=== PATIENT | female | born 1965 | race Hispanic/Latino ===

== ENCOUNTER 2020-01-23 20:33 | Emergency (ER) | payer BC ==
[~2020-01-23] VITALS: Ht 160 cm; Wt 68.0 kg
--- OUTSIDE RECORDS SUMMARY | 2020-01-23 20:37 | XMS REPORT | Encounter Summary ---
Author Organization Unknown Address [address] [place] [address] Phone [phone] Care Team Providers Care Carpenter Assistant Installer Name Role Phone Dr. Albania Bobo 3 [phone] Precious Oneal 119 [phone] Reason for Visit dizziness; nausea; tingling/numbness; headaches; cough / congestion; diarrhea; vomiting Instructions 1. Acute sinusitis Xyzal 5 mg tablet Nasonex 50 mcg/actuation [place] benzonatate 200 mg capsule 2. Nausea, vomiting and diarrhea ondansetron 4 mg disintegrating tablet 3. Immunization Shingrix Adjuvant Component (PF) intramuscular suspension 4. Body mass index 25-29 - overweight learning about healthy weight 5. Screening for malignant neoplasm of breast MAMMO, screening, digital, bilateral - Please contact patient to schedule. Thank you! 6. Screening for malignant neoplasm of colon colonoscopy referral - Please contact patient to schedule. Thank you! 7. Screening for disorder 8. Screening for osteoporosis DEXA - Please contact patient to schedule. Thank you! Discussion Note: None recorded. Plan of Care Reminders Provider Appointments Est Patient 12/17/2019 4:00PM Maddie Ferguson NP Lab None recorded. Referral Colonoscopy Referral 12/07/2019 Gokul Samuels Procedures None recorded. Surgeries None recorded. Imaging MAMMO, Screening, Digital, Bilateral 12/07/2019 [facility] Dexa 12/07/2019 [facility] Medications Name Start Date benzonatate 200 mg capsule Take 1 capsule 3 times a day by oral route as needed. Humalog [place] KwikPen U-100 15 units three times a day Jardiance 10 mg tablet Take 1 tablet every day by oral route for 90 days. Nasonex 50 mcg/actuation [place] 1 spray twice a day by intranasal route for 7 days. ondansetron 4 mg disintegrating tablet Take 1 tablet 3 times a day by oral route as needed. rosuvastatin 40 mg tablet Take 1 tablet every day by oral route for 90 days. Xultophy 100/3.6 100 unit-3.6 mg/mL (3 mL) subcutaneous insulin pen Inject 50 units every day by sub-q route for 30 days. Xyzal 5 mg tablet Take 1 tablet every day by oral route at bedtime for 7 days. Medications Administered None recorded. Vitals Height Weight BMI Blood Pressure 5 ft 2.3 in 156 lbs 28.3 kg/m2 110/76 mm[Hg] Results Lab Results None recorded. Allergies Code Code System Name Reaction Severity Status Onset NKDA Problems Name Status Onset Date Source Type 2 Diabetes Mellitus Active 12/07/2019 Dyslipidemia Active 12/07/2019 Procedures Date Name Performed by 11/10/2014 Hysterectomy (Total) Information not available 12/07/2019 MAMMO, Screening, Digital, Bilateral [address] [address] (Work Place) 12/07/[address] [address] (Work Place) Vaccine List Vaccine Type influenza, injectable, quadrivalent 09/25/2019 pneumococcal polysaccharide PPV23 05/10/2019 Tdap 09/25/2019 Social History Tobacco Smoking Status Never Smoker Past Encounters 12/07/2019 Acute Sinusitis; Nausea, Vomiting and Diarrhea; Immunization; Body Mass Index 25-29 - Overweight; Screening for Malignant Neoplasm of Breast; Screening for Malignant Neoplasm of Colon; Screening for Disorder; Screening for Osteoporosis Maddie Ferguson 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 History of Present Illness Note:<div>New patient to establish care.</div><div>
</div><div>pmh: dm, dyslipidemia, uterine fibroids with dub.</div><div>psh: total hysterectomy Oct 2015. </div><div>medication: insulin and Jardiance</div><div>smoker: denies</div ><div>Alcohol: social occasions.</div><div>
</div><div>1. Under care of Dr. Oneal for DM and last haic: 7.5 a month ago. Was changed from Humalog to Novolog and was having s/e of fatigue, nausea, hiccups, vomiting, diarrhoea since couple of weeks. Switched back to Humalog since past with improvement in sx. Nausea persists. On Xultophy and humalog at this time. </div ><div>
</div><div>2. Has nasal congestion, nasal sinus headache with pnd, cough, worse at night and in the morning since a week. denies cp/ dyspnea/fever. </div> Review of Systems Comprehensive Adult Problem ROS Reported By: Patient Constitutional: Constitutional: no significant weight change, fatigue Eyes: Eyes: ; denies vision disturbances ENMT: ENMT: sinus pressure, congestion Cardiovascular: Cardiovascular: no chest pain, normal heart rate; no pedal edema Respiratory: Respiratory: no wheezing, no chest tightness, normal respiration, cough Gastrointestinal: GI: no abdominal pain, no constipation, nausea, vomiting, diarrhea Musculoskeletal: Musculoskeletal: no soft tissue swelling, no joint swelling Skin: Skin: no rash Neurological symptoms: Neuro: no numbness, no tingling, no dizziness, headache Psychiatric: Psych: depression, anxiety; without si/thoughts Physical Exam General Adult Exam (Female) Reported By: Patient Constitutional: General Appearance: healthy-appearing, well-developed, overweight. Level of Distress: NAD. Ambulation: ambulating normally Psychiatric: Mental Status: active and alert, normal mood, normal affect. Orientation: to time, to place, to person Eyes: Pupils: PERRLA. EOM: EOMI. Sclerae: non-icteric ENMT: Ears: EACs clear, TMs clear. Nose: no sinus tenderness, nasal discharge--rhinorrhea, post nasal drip. Oropharynx: moist mucous membranes, no erythema, no exudates, tonsils not enlarged Neck: Neck: supple. Lymph Nodes: no cervical LAD, no supraclavicular LAD Lungs: Respiratory effort: no dyspnea. Auscultation: breath sounds normal, good air movement, no wheezing, no rales/crackles, no rhonchi Cardiovascular: Apical Impulse: not displaced. Heart Auscultation: RRR, normal S1, normal S2 Abdomen: Bowel Sounds: normal. Inspection and Palpation: soft, non-distended, no tenderness, no guarding, no rebound tenderness, no masses, no CVA tenderness; abdominal wall obesity. Liver: non-tender, no hepatomegaly. Spleen: non-tender, no splenomegaly Musculoskeletal:: Joints, Bones, and Muscles: normal movement of all extremities. Extremities: no edema Neurologic: Gait and Station: normal gait, normal station Skin: Inspection and palpation: no rash
--- OUTSIDE RECORDS SUMMARY | 2020-01-23 20:37 | XMS REPORT | Encounter Summary ---
Author Organization Unknown Address [address] [place] [address] Phone [phone] Care Team Providers Care Pipeman Name Role Phone Dr. Albania Bobo 3 [phone] Precious Oneal 119 [phone] Reason for Visit dizziness; nausea; tingling/numbness; headaches; cough / congestion; diarrhea; vomiting Instructions 1. Acute sinusitis Xyzal 5 mg tablet Nasonex 50 mcg/actuation [place] benzonatate 200 mg capsule 2. Nausea, vomiting and diarrhea ondansetron 4 mg disintegrating tablet 3. Immunization Shingrix Adjuvant Component (PF) intramuscular suspension 4. Body mass index 25-29 - overweight learning about healthy weight 5. Screening for malignant neoplasm of breast MAMMO, screening, digital, bilateral 6. Screening for malignant neoplasm of colon colonoscopy referral 7. Screening for disorder 8. Screening for osteoporosis DEXA Discussion Note: None recorded. Plan of Care Reminders Provider Appointments Est Patient 12/17/2019 4:00PM Maddie Ferguson NP Lab None recorded. Referral Colonoscopy Referral 12/07/2019 Procedures None recorded. Surgeries None recorded. Imaging MAMMO, Screening, Digital, Bilateral 12/07/2019 [facility] Dexa 12/07/2019 [facility] Medications Name Start Date benzonatate 200 mg capsule Take 1 capsule 3 times a day by oral route as needed. Humalog [place] KwikPen U-100 15 units three times a day Jardiance 10 mg tablet Take 1 tablet every day by oral route for 90 days. Nasonex 50 mcg/actuation [place] 1 spray twice a day by intranasal [...] not available 12/07/2019 MAMMO, Screening, Digital, Bilateral [facility] [address] [place] [address] (Work Place) 12/07/2019 Dexa [facility] [address], [place] [id number] (Work Place) Vaccine List Vaccine Type influenza, injectable, quadrivalent 09/25/2019 pneumococcal polysaccharide PPV23 05/10/2019 Tdap 09/25/2019 Social History Tobacco Smoking Status Never Smoker Past Encounters 12/07/2019 Acute Sinusitis; Nausea, Vomiting and Diarrhea; Immunization; Body Mass Index 25-29 - Overweight; Screening for Malignant Neoplasm of Breast; Screening for Malignant Neoplasm of Colon; Screening for Disorder; Screening for Osteoporosis Maddie Ferguson 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 History of Present Illness Note:<div>New patient [...] no tingling, no dizziness, headache Psychiatric: Psych: no depression, no anxiety Physical Exam General Adult Exam (Female) Reported [...]
[2020-01-23] MEDS ORDERED: ONDANSETRON HCL INJ 2MG/ML 2ML 2 MG/ML VIAL IV STA (20:41)
[2020-01-23] MEDS ORDERED: PANTOPRAZOLE 40 MG 10ML VIAL IV STA (20:41)
[2020-01-23] MEDS ORDERED: SODIUM CHLORIDE 0.9% 1000ML 1,000 ML IV SCH (20:45)
[2020-01-23] MEDS ORDERED: ACETAMINOPHEN 325 MG TAB PO ONE (20:45)
[2020-01-23 21:05] LABS: BASOPHILS % 0.1 % (0.0-1.0); EOSINOPHILS # (AUTO) 0.1 (0.0-0.4); EOSINOPHILS % 0.4 % (0.0-6.0); HEMATOCRIT 46.4 % (34.2-44.1); LYMPHOCYTES # (AUTO) 0.9 (1.0-3.2); LYMPHOCYTES % 7.8 % (18.0-39.1); MEAN CORPUSCULAR HEMOGLOBIN 30.9 pg (28-32); MEAN CORPUSCULAR HGB CONC 34.5 g/dL (31-35); MEAN CORPUSCULAR VOLUME 89.7 fL (81-99); MONOCYTES # (AUTO) 0.5 (0.2-0.8); MONOCYTES % 4.7 % (4.4-11.3); NEUTROPHILS # (AUTO) 9.6 (2.1-6.9); NEUTROPHILS % 86.6 % (38.7-80.0); PLATELET COUNT 260 x10e3/uL (140-360); RED BLOOD COUNT 5.17 x10e6/uL (3.6-5.1); RED CELL DISTRIBUTION WIDTH 13.2 % (11.7-14.4)
[2020-01-23 21:23] LABS: ALANINE AMINOTRANSFERASE 15 IU/L (0-55); ALBUMIN 4.3 g/dL (3.5-5.0); ALBUMIN/GLOBULIN RATIO 1.1 (0.8-2.0); ALKALINE PHOSPHATASE 67 IU/L (40-150); ANION GAP 13.1 mmol/L (8-16); BLOOD UREA NITROGEN 21 mg/dL (7-26); BUN/CREATININE RATIO 30 (6-25); CALCIUM 9.6 mg/dL (8.4-10.2); CARBON DIOXIDE 29 mmol/L (22-29); CHLORIDE 104 mmol/L (98-107); EST GLOMERULAR FILTRATION RATE > 60 ML/MIN (60-); GLUCOSE 126 mg/dL (74-118); POTASSIUM 4.1 mmol/L (3.5-5.1); SODIUM 142 mmol/L (136-145)
[2020-01-23 21:25] LABS: STREPTOCOCCUS GRP A ANTIGEN NEGATIVE (NEGATIVE)
[2020-01-23 21:51] LABS: AMYLASE 95 U/L (25-125); LIPASE 22 U/L (8-78)
[2020-01-23 22:01] LABS: INFLUENZAE A&B ANTIGEN (RAPID) NEGATIVE (NEGATIVE)
[2020-01-23 22:04] LABS: CLARITY,URINE SL CLOUDY (CLEAR); COLOR,URINE YELLOW (YELLOW)
[2020-01-23 22:05] LABS: BILIRUBIN,URINE NEGATIVE (NEGATIVE); KETONES,URINE NEGATIVE (NEGATIVE); LEUKOCYTE ESTERASE ,URINE NEGATIVE (NEGATIVE); NITRITE,URINE NEGATIVE (NEGATIVE); PROTEIN,URINE DIPSTICK NEGATIVE (NEGATIVE); URINE UROBILINOGEN 0.2 mg/dL (0.2 - 1)
[2020-01-23 22:14] LABS: BACTERIA,URINE FEW /HPF; EPITHELIAL CELLS,URINE RARE /LPF; RBC,URINE 0-5 /HPF (0-5)
--- NOTE | 2020-01-24 00:02 | Diagnostic Imaging Report ---
EXAM: CT Abdomen and Pelvis WITH contrast INDICATION: Right lower quadrant abdominal pain. COMPARISON: None. TECHNIQUE: Abdomen and pelvis were scanned utilizing a multidetector helical scanner from the lung base to the pubic symphysis after administration of IV contrast. Coronal and sagittal reformations were obtained. Routine protocol was performed. Scan was performed during portal venous phase. IV CONTRAST: 100 cc of Isovue-370 ORAL CONTRAST: Water COMPLICATIONS: None RADIATION DOSE: Total DLP: 372.7 mGy*cm Estimated effective dose: (DLP x 0.015 x size factor) mSv CTDIvol has been reviewed. It is below the limits set by the Radiation Protocol Committee (RPC). FINDINGS: LINES and TUBES: None. LOWER THORAX: There is a 3 mm subpleural nodule in the right middle lobe on series 2, image 3. HEPATOBILIARY: Diffuse mild hepatic steatosis. No evidence of focal lesion. No biliary ductal dilation. GALLBLADDER: No radio-opaque stones or sludge. No wall thickening. SPLEEN: No splenomegaly. PANCREAS: No focal masses or ductal dilatation. ADRENALS: No adrenal nodules KIDNEYS/URETERS: Kidneys enhance symmetrically. No evidence of hydronephrosis, solid mass, or stone. GI TRACT: The stomach is distended with fluid and heterogeneous enteric contents. There is mild mural enhancement. There is mural enhancement and wall thickening within jejunal loops. The appendix is not identified, however there are no secondary signs of appendicitis. PELVIC ORGANS/BLADDER: Mild circumferential wall thickening in the bladder. Status post hysterectomy. LYMPH NODES: No lymphadenopathy. VESSELS: There is moderate atherosclerotic disease in the aorta and major arterial branches. 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 PERITONEUM / RETROPERITONEUM: No free air or fluid. BONES AND SOFT TISSUES: Unremarkable. CONCLUSION: Findings compatible with gastroenteritis. Mild circumferential wall thickening in the bladder, suggestive of cystitis. Hepatic steatosis. A 3 mm subpleural right middle lobe nodule, which does not require follow-up in a low risk patient. In a high risk patient, a optional follow-up chest CT may be considered in 12 months. Signed by: Dr. Steph Ace MD on 01/23/2020 11:59 PM
[2020-01-24] MEDS ORDERED: CEFTRIAXONE SOD 1 GM/NS 50 ML 50 ML IV ONE (00:15)
[2020-01-24 00:17] VITALS: BP 130/80
== END 2020-01-24 00:47 | disposition home or self-care (01) ==
LOC: ER 20:33
DX: R50.9 Fever, unspecified (principal); R05 Cough; R10.31 Right lower quadrant pain; R11.2 Nausea with vomiting, unspecified; R51 Headache; R30.0 Dysuria; N39.0 Urinary tract infection, site not specified; E11.9 Type 2 diabetes mellitus without complications; K21.9 Gastro-esophageal reflux disease without esophagitis
CPT/HCPCS: 36415; 74177; 80053; 81001; 82150; 83518; 83690; 85025; 87070; 87400; 99284; C9113; J0696; J2405; J7030